=== PATIENT | female | born 1955 ===

== ENCOUNTER 2022-10-18 07:06 | Day surgery (SDC) | payer OTHER ==
[~2022-10-18] VITALS: Ht 157.5 cm; Wt 66.7 kg
[~2022-10-18 07:06] MED LIST: LISINOPRIL10 MG PO; PRILOSEC OTC20 MG PO
[2022-10-18] MEDS ORDERED: PERCOCET 5-3251 EACH PO (11:39)
== END 2022-10-18 16:05 | disposition home or self-care (01) ==
LOC: CIR.AMB 07:06
PROVIDERS: ATTEND Surgery
DX: D35.1 Benign neoplasm of parathyroid gland (principal); E21.0 Primary hyperparathyroidism; Z20.822 Contact with and (suspected) exposure to COVID-19; I10 Essential (primary) hypertension